=== PATIENT | female | born 1940 | race Caucasian/White ===

== ENCOUNTER 2025-01-09 17:05 | Inpatient (IN) | payer MEDICARE, SELFPAY ==
[2025-01-05 15:41] VITALS: BP 125/91
[2025-01-05 15:46] VITALS: BP 125/91
[2025-01-05 15:48] VITALS: BMI 26.7
[2025-01-05 16:00] VITALS: BP 120/86
--- NOTE | 2025-01-05 16:23 | ED.GENMED ---
History of Present Illness
<Rosa Santiago PA-C - Last Filed: 01/06/25 01:39>
General
Chief Complaint: Musculo-Skeletal Complaint
Source: patient
Exam Limitations: none
Time Seen by Provider: 01/05/25 16:05
Nursing documentation reviewed up to this point in time: agreed with
History of Present Illness
History of Present Illness:
see MDM
Past History
<Rosa Santiago PA-C - Last Filed: 01/06/25 01:39>
Past History
ED Past Medical History: Arrthythmia, HTN and Hypercholesterolemia
ED Past Surgical History: None
Social History
Tobacco: Non-smoker
Review of Systems
<RAINE Lopez Last Filed: 01/06/25 01:39>
Review of Systems
Allergies reviewed?: Yes
All Other Systems: Not applicable
Phy Exam
<RAINE Lopez Last Filed: 01/06/25 01:39>
Physical Exam
Physical Exam:
see MDM
Course
<RAINE Lopez Last Filed: 01/06/25 01:39>
Orders/Labs/Results
Orders:
Orders
01/05/25 Dinner
Regular
At Your Request: Full Participation
01/05/25 16:17
HYDROmorphone [Dilaudid] 0.25 mg IV NOW STA
Ketorolac [Toradol] 15 mg IV NOW STA
Hip, Right 2-3 Views [CR Hip - RT w/wo Pel 2-3 Vw*] Urgent
Comment:
Reason For Exam: R hip pain after lifting
Include a pelvis x-ray?: Yes
Lumbar Spine Complete, 4 View [CR Lumbar Spine Comp Min 4 Vw*] Urgent
Comment:
Reason For Exam: lower back pain cannot ambulate
01/05/25 16:51
Complete Blood Count/With Diff Urgent
Comprehensive Metabolic Panel Urgent
01/05/25 17:26
0.9% Sodium Chloride 500 ml [Nss] 500 ml IV BOLUS
01/05/25 20:13
Dexamethasone Sod Phosphate [Decadron] 6 mg IV NOW STA
HYDROmorphone [Dilaudid] 0.25 mg IV NOW STA
01/05/25 21:38
Admit/Transfer Patient As Directed
Co-Sign Provider:
Level of Care: Observation services
Assign to:: Medical/Surgical
Physician / Group: melquiades byers
Diagnosis: amb dysfunction 22/ r sciatica pos l2 compress fx. yohannes
Code Status As Directed
Resuscitation Status: Do not resuscitate
Reached after discussion with pt or family/Healthcare POA: Yes
Decision communicated with: Per patient with daughter and son-in-law at bedside
DNR Bracelet Application ONCE
01/05/25 21:44
PRN Pain Medication Management As Directed
May give lesser potent ordered pain med per pt: Yes
preference::
Protocol:: Medication orders for pain may be administered in a
manner that supports deferring to patient preference
when the pt is:
- Requesting an ordered lesser potent pain medication.
Least to most potent pain medications are defined
as: acetaminophen < NSAID < tramadol < opioids
(morphine, oxycodone, hydromorphone).
- Requesting a lesser dose of the same medication IF
ORDERED.
- Requesting a less intrusive route of administration
if both routes are prescribed by the provider (PO <
IV).
01/05/25 21:46
Acetaminophen [Tylenol] 1,000 mg PO NOW STA
01/05/25 21:50
Lidocaine [Lidocaine 4% Patch] 1 patch TOPICAL DAILY
Apply Lidocaine patch(s) to:: right upper buttox horizontal
01/05/25 23:44
Acetaminophen [Tylenol] 1,000 mg PO TID
Bisacodyl [Dulcolax] 10 mg RECTAL [id number] PRN
Docusate W/Senna [Senokot-S] 1 tablet PO BIDPRN PRN
Polyethylene Glycol Powder [Miralax] 17 grams PO DAILYPRN PRN
01/05/25 23:44
VTE Contraindication Routine
VTE Mechanical Device Contraindication: Medical Contraindication
Pharmocologic Contraindication: Medical Contraindication
Comment: Continue PEDIATRICIAN Eliquis
Activity As Directed
Activity Level: With Assistance
Vital Signs As Directed
Frequency: Per unit guidelines
Ot Eval And Treat Routine
Pt Eval And Treat Routine
Activity Level: As Tolerated
01/06/25 06:00
Complete Blood Count/With Diff IN AM
Comprehensive Metabolic Panel IN AM
01/06/25 08:00
Apixaban [Eliquis] 5 mg PO BID
Artificial Tears (Pf) [Refresh Eye Drops (Pf)] 1 drops BOTH EYES BID
Metoprolol Xl [Toprol Xl] 100 mg PO DAILY
Annamarie's Opcon 1 drop OPHTH BID
Pravastatin Sodium [Pravachol] 40 mg PO DAILY
Prednisone [Deltasone] 7 mg PO DAILY
dorzolamide-timolol 1 drop BOTH EYES BID
01/06/25 22:00
Non-Formulary Item See Dose Instructions BOTH EYES HS
Abnormal Lab Results
01/05/25
16:51
MCHC 32.5 L g/dL
(33.0-37.0)
MPV 10.6 H fL
(7.4-10.4)
Abs Immat Gran (auto) 0.1 H 10^3/uL
(0-0.05)
Absolute Lymphs (auto) 1.1 L 10^3/uL
(1.2-3.4)
Absolute Monos (auto) 0.8 H 10^3/uL
(0.1-0.6)
Immature Gran % 0.8 H %
(0-0.5)
Lymphocytes % 15.2 L %
(20.5-51.1)
Monocytes % 10.7 H %
(1.7-9.3)
BUN 43 H mg/dl
(7-17)
Creatinine 1.1 H mg/dL
(0.6-1.0)
Glucose 114 H mg/dl
(70-99)
Total Bilirubin 1.5 H mg/dl
(0.2-1.3)
01/05/25 16:51
01/05/25 16:51
Vital Signs
Initial and Last Documented VS:
Initial Vital Signs
Temp Pulse Resp BP Pulse Ox
36.6 C 77 16 125/91 98
01/05/25 15:41 01/05/25 15:41 01/05/25 15:41 01/05/25 15:41 01/05/25 15:41
Last Documented Vital Signs
Temp Pulse Resp BP Pulse Ox
37.0 C 105 20 129/92 95
01/05/25 23:37 01/05/25 23:37 01/05/25 23:37 01/05/25 23:37 01/05/25 23:37
<Hans Esteves MD - Last Filed: 01/05/25 23:11>
Orders/Labs/Results
Orders:
Orders
01/05/25 Dinner
Regular
At Your Request: Full Participation
01/05/25 16:17
HYDROmorphone [Dilaudid] 0.25 mg IV NOW STA
Ketorolac [Toradol] 15 mg IV NOW STA
Hip, Right 2-3 Views [CR Hip - RT w/wo Pel 2-3 Vw*] Urgent
Comment:
Reason For Exam: R hip pain after lifting
Include a pelvis x-ray?: Yes
Lumbar Spine Complete, 4 View [CR Lumbar Spine Comp Min 4 Vw*] Urgent
Comment:
Reason For Exam: lower back pain cannot ambulate
01/05/25 16:51
Complete Blood Count/With Diff Urgent
Comprehensive Metabolic Panel Urgent
01/05/25 17:26
0.9% Sodium Chloride 500 ml [Nss] 500 ml IV BOLUS
01/05/25 20:13
Dexamethasone Sod Phosphate [Decadron] 6 mg IV NOW STA
HYDROmorphone [Dilaudid] 0.25 mg IV NOW STA
01/05/25 21:38
Admit/Transfer Patient As Directed
Co-Sign Provider:
Level of Care: Observation services
Assign to:: Medical/Surgical
Physician / Group: melquiades byers
Diagnosis: amb dysfunction 22/ r sciatica pos l2 compress fx. yohannes
Code Status As Directed
Resuscitation Status: Do not resuscitate
Reached after discussion with pt or family/Healthcare POA: Yes
Decision communicated with: Per patient with daughter and son-in-law at bedside
DNR Bracelet Application ONCE
01/05/25 21:44
PRN Pain Medication Management As Directed
May give lesser potent ordered pain med per pt: Yes
preference::
Protocol:: Medication orders for pain may be administered in a
manner that supports deferring to patient preference
when the pt is:
- Requesting an ordered lesser potent pain medication.
Least to most potent pain medications are defined
as: acetaminophen < NSAID < tramadol < opioids
(morphine, oxycodone, hydromorphone).
- Requesting a lesser dose of the same medication IF
ORDERED.
- Requesting a less intrusive route of administration
if both routes are prescribed by the provider (PO <
IV).
01/05/25 21:46
Acetaminophen [Tylenol] 1,000 mg PO NOW STA
01/05/25 21:50
Lidocaine [Lidocaine 4% Patch] 1 patch TOPICAL DAILY
Apply Lidocaine patch(s) to:: right upper buttox horizontal
01/05/25 23:44
Acetaminophen [Tylenol] 1,000 mg PO TID
Bisacodyl [Dulcolax] 10 mg RECTAL [id number] PRN
Docusate W/Senna [Senokot-S] 1 tablet PO BIDPRN PRN
Polyethylene Glycol Powder [Miralax] 17 grams PO DAILYPRN PRN
01/05/25 23:44
VTE Contraindication Routine
VTE Mechanical Device Contraindication: Medical Contraindication
Pharmocologic Contraindication: Medical Contraindication
Comment: Continue PEDIATRICIAN Eliquis
Activity As Directed
Activity Level: With Assistance
Vital Signs As Directed
Frequency: Per unit guidelines
Ot Eval And Treat Routine
Pt Eval And Treat Routine
Activity Level: As Tolerated
01/06/25 06:00
Complete Blood Count/With Diff IN AM
Comprehensive Metabolic Panel IN AM
01/06/25 08:00
Apixaban [Eliquis] 5 mg PO BID
Artificial Tears (Pf) [Refresh Eye Drops (Pf)] 1 drops BOTH EYES BID
Metoprolol Xl [Toprol Xl] 100 mg PO DAILY
Annamarie's Opcon 1 drop OPHTH BID
Pravastatin Sodium [Pravachol] 40 mg PO DAILY
Prednisone [Deltasone] 7 mg PO DAILY
dorzolamide-timolol 1 drop BOTH EYES BID
01/06/25 22:00
Non-Formulary Item See Dose Instructions BOTH EYES HS
Abnormal Lab Results
01/05/25
16:51
MCHC 32.5 L g/dL
(33.0-37.0)
MPV 10.6 H fL
(7.4-10.4)
Abs Immat Gran (auto) 0.1 H 10^3/uL
(0-0.05)
Absolute Lymphs (auto) 1.1 L 10^3/uL
(1.2-3.4)
Absolute Monos (auto) 0.8 H 10^3/uL
(0.1-0.6)
Immature Gran % 0.8 H %
(0-0.5)
Lymphocytes % 15.2 L %
(20.5-51.1)
Monocytes % 10.7 H %
(1.7-9.3)
BUN 43 H mg/dl
(7-17)
Creatinine 1.1 H mg/dL
(0.6-1.0)
Glucose 114 H mg/dl
(70-99)
Total Bilirubin 1.5 H mg/dl
(0.2-1.3)
01/05/25 16:51
01/05/25 16:51
Vital Signs
Initial and Last Documented VS:
Initial Vital Signs
Temp Pulse Resp BP Pulse Ox
36.6 C 77 16 125/91 98
01/05/25 15:41 01/05/25 15:41 01/05/25 15:41 01/05/25 15:41 01/05/25 15:41
Last Documented Vital Signs
Temp Pulse Resp BP Pulse Ox
37.0 C 105 20 129/92 95
01/05/25 23:37 01/05/25 23:37 01/05/25 23:37 01/05/25 23:37 01/05/25 23:37
<Rosa Santiago PA-C - Last Filed: 01/06/25 01:39>
MDM/Problems Addressed
Differential Diagnosis Includes:
see MDM
MDM/Problems Addressed:
Note:
CHIEF COMPLAINT(S)
Hip pain since December 24, 2022.
HISTORY OF PRESENT ILLNESS
The patient is an 84-year-old female who presented today with hip pain that started on December 24, 2022, after she pulled a heavy flower pot on the sidewalk. Initially, she did not feel any significant pain, but the discomfort progressively
worsened over time. She described the pain as severe, making it difficult to get out of bed and move. The pain does not radiate down the leg, and she does not experience numbness or tingling. She reported being constipated for two to three days,
followed by diarrhea for a couple of days. Pain severity increases with movement, particularly when transitioning from a sitting to a standing position. She lives alone and had to call a relative for assistance; however, upon her relatives arrival,
they decided she needed to go to the hospital. Her relative called EMS, and she arrived by ambulance. She has not received any pre-hospital pain medication. The patient denied any loss of bladder or bowel control, though noted difficulty with
bathing and changing underwear. She is unable to sit upright comfortably or walk to the bathroom without assistance. She rates her pain as 0 while lying still but reports severe pain when attempting to move.
PAST MEDICAL AND SURGICAL HISTORY
The patient has hypertension and is on anticoagulant therapy.
SOCIAL DETERMINANTS AFFECTING HEALTH
The patient lives alone and mentions having no relatives nearby as her family is in [place], which affects her ability to obtain assistance for medical issues and daily activities.
PHYSICAL EXAM
Nursing notes reviewed and vital signs reviewed.
- Musculoskeletal: Significant pain when transitioning from sitting to standing, lying on the side during the exam was painful. Pain localized primarily to the hip area with palpation.
- Abdomen: No pain reported upon palpation.
PROBLEM LIST
Acute:
- Severe hip pain post-trauma (lifting heavy object)
Chronic:
- Hypertension
PLAN
1. Administer intravenous pain medication, starting with morphine, in a small dose to assess response and manage pain.
2. Monitor mobility and reassess ability to walk or stand with improved pain control.
3. Consider collaboration with family for home support as needed.
4. Possible future referral for MRI imaging to assess for disc herniation or compression fractures.
5. Follow-up with family physician for ongoing management and further evaluation if necessary.
DIFFERENTIAL DIAGNOSIS
The Differential Diagnosis includes, in no particular order and is not limited to:
1. Hip fracture or stress fracture
2. Lumbar spine disc herniation
3. Sciatica
4. Sacroiliac joint dysfunction
5. Spinal stenosis
6. Muscle strain or sprain
7. Trochanteric bursitis
8. Osteoarthritis of the hip
9. Osteomyelitis
10. Referred pain from abdominal pathology
01/05/25 - 20:13
The patients hip X-ray shows no fractures, though mild arthritis is present. The lumbar spine reveals chronic minimal L5 end plate compression and a recent mild compression deformity at L2, contributing to pain. Sciatica is less likely, as the
patient does not report shooting leg pain, suggesting joint or muscle inflammation. Despite strong analgesics, the patient has significant difficulty moving, suggesting admission is necessary for pain management and mobility assessment. The patient
has a history of polymyalgia rheumatica, currently on 7 mg of steroids daily, with previous symptoms primarily in the shoulders. Increased steroid dosage and physical therapy evaluation are considered beneficial for enhancement of mobility. Glaucoma
treatment with rare eye drops should be continued during hospitalization. Admission for PT eval, and a comprehensive mobility and pain management plan is initiated.
<Rosa Santiago PA-C - Last Filed: 01/06/25 01:39>
*Pulse Oximetry
SaO2: 98
Oxygen Mode of Delivery: Room air
Patient hypoxic: no (95)
*Critical Care Note
Total Time (30-74mins, 75-104mins- exclusive of procedures): Not Applicable
ED Attending Note
<Rosa Santiago PA-C - Last Filed: 01/06/25 01:39>
-
Portions of this chart may have been created with voice recognition software.� Occasional wrong word or��sound alike� substitutions may have occurred due to the inherent limitations of voice recognition software.
<Hans Esteves MD - Last Filed: 01/05/25 23:11>
ED Attending Note
Patient seen and examined by attending physician: Yes
ED Attending Note:
I have seen and evaluated the patient with a [id number] encounter. I have spoken to the advance practicer provider and involved in the medical history, the physical exam, medical decision making.
Evaluation and management service: agree unless noted differently below.
Results interpretation: agree unless noted differently below.
Focused HPI: 84-year-old female with history as documented who presents to the emergency room for evaluation of hip/low back pain. Patient reports that symptoms started about 2 weeks ago after she was pulling a heavy flower pot. They have been
constant since that time. She reports pain in the low back/buttock. Denies any radicular symptoms. Denies any incontinence or anesthesia. No weakness or numbness in the legs. Pains are much worse with movement to the point that she is having
difficulty walking now.
Physical exam: Laying on bed not in distress. Vital signs as noted. She has some tenderness in the right greater than left sacroiliac region as well as in the right buttock. No edema in the legs, extremities are warm and well-perfused, motor and
sensory intact in the legs.
Medical Decision Makin-year-old female presents with hip/low back pain as described above. Difficulty bearing weight/walking. X-rays show compression fractures which are likely contributing to pain�L5 chronic, L2 appears subacute. Unable to
adequately control patient's pain in the ER will admit for continued treatment.
Discharge Plan
Departure
Patient Disposition: Admit
Date of Disposition: 01/05/25
Time of Disposition: 20:13
Admit to: Med/Surg
Presentation/result/management discussed w/ accepting MD/DO: Hospitalist
Patient with high blood pressure during this ER visit?: No
Condition: Fair
Covid-19: Not Applicable
Discharge Problem:
Compression fx, lumbar spine, PMR (polymyalgia rheumatica), Ambulatory dysfunction
Interventions
Interventions:
*Risk Screen - Suicide Last Done: 01/05/25 15:41
*General Assessment Last Done: 01/05/25 15:41
*Neglect/Abuse Screening Last Done: 01/05/25 15:48
*ED- Fall Risk Assessment Last Done: 01/05/25 15:48
*ED COVID-19 Vaccine History Last Done: 01/05/25 15:48
*ED Influenza Vaccine History Last Done: 01/05/25 15:48
*Nursing Disposition Last Done: 01/05/25 23:20
ED-Musculoskeletal Assessment Last Done: 01/05/25 15:53
Discharge Date and Time
Discharge Date/Time: 01/05/25 23:21
[2025-01-05] MEDS: DILAUDID 0.25 MG IV ×2 (16:41→20:29)
[2025-01-05] MEDS: TORADOL 15 MG IV (16:41)
[2025-01-05 17:05] LABS: Hematocrit 42.4 % (37.0-47.0); Hemoglobin 13.8 g/dL (12.0-16.0); Mean Corp Hgb Conc. 32.5 g/dL (33.0-37.0); Mean Corpuscular Volume 93.4 fL (81.0-99.0); Nucleated Red Blood Cells % 0 %; Platelet Count 198 10^3/uL (130-400); Red Cell Dist. Width 13.6 % (11.5-14.5)
[2025-01-05 17:19] LABS: ALT (SGPT) 15 U/L (0-35); AST (SGOT) 22 U/L (14-36); Albumin 3.9 g/dl (3.5-5.0); Alkaline Phosphatase 62 U/L (38-126); Blood Urea Nitrogen 43 mg/dl (7-17); Calcium 9.8 mg/dl (8.4-10.2); Carbon Dioxide 28 mmol/L (22-30); Chloride 102 mmol/L (98-107); Estimated Creatinine Clearance 36 ml/min; Glucose 114 mg/dl (70-99); Potassium 4.3 mmol/L (3.5-5.1); Sodium 138 mmol/L (135-145); Total Protein 6.5 g/dl (6.3-8.2); eGFR 48.94
[2025-01-05] MEDS: NSS 500 IV (19:11)
[2025-01-05] MEDS: DECADRON 6 MG IV (20:29)
--- NOTE | 2025-01-05 20:52 | HPS.HSE ---
Addendum entered and electronically signed by Abelardo Armenta DO 01/05/25 23:21:
Patient seen and examined independently. Agree with findings and plan as set forth by KB Gamez.
Patient is an 84y F with PMH significant for polymyalgia rheumatica, hypertension and A-Fib who presents to ED complaining of pain in the R buttock. Patient states that her pain started 12/24 after pulling a heavy object across the floor. The
pain seemed to improve for a time and then has recurred. Patient is unable to stand / ambulate due to the pain. There is no radiation of pain into the abdomen or the LE.
Ass:
Right Low Back Pain
Ambulatory Dysfunction secondary to the above
Polymyalgia Rheumatica
Renal Insufficiency
Atrial Fibrillation - Unknown Type
Benign Hypertension
Plan:
Observe overnight for further evaluation and treatment.
Pain control, heat application, PT / OT evaluations.
CM eval for discharge plan / possible SNF placement.
Continue usual home med regimen.
Original Note:
Family Physician
-
Family Physician: Aster Pineda
Chief Complaint
-
Right hip pain ambulatory dysfunction
History of Present Illness
84-year-old female complaining of with hip pain that has progressively worsened since December 24. She reports increased pain with movement, sitting to standing position. She reports hurting her back after pulling a heavy flower pot on the
sidewalk on December 24. She lives alone and was unable to care for self without assistance at home. She complains of pain across right upper buttocks area. She did not have any walker or assistive devices at home so she was using 2 mops to
walk. She denies bladder or bowel incontinence, numbness, tingling, chest pain, palpitations, cough, shortness of breath, abdominal pain, nausea, vomiting. She does report 2 to 3 days of constipation followed by diarrhea initially but resolved had
normal bowel movement yesterday. She has past medical history of polymyalgia rheumatica on chronic steroids, A-fib, HTN, HLD, glaucoma.
Medical History
Past Medical History
Past Medical History: Reports Other
Additional Past Medical History:
polymyalgia rheumatica on chronic steroids
A-fib
HTN
HLD
glaucoma.
Past Surgical History: Reports None
Social History
Tobacco: Non-smoker
Alcohol: None
Drug: None
Personal: Single
Living: Alone
Employment: Retired
Family History
Family History: Not pertinent
Allergies / Home Medications
Allergies reflects when Allergies were last updated in [facility].
Home Medications with original date entered in [facility]
Allergy/Medication List:
Allergies
Allergy/AdvReac Type Severity Reaction Status Date / Time
No Known Allergies Allergy Verified 01/05/25 15:51
Home Medications
Lumigan 1 drp ophthalmic (eye) HS 01/05/25
Annamarie's Opcon 1 drp ophthalmic (eye) BID 01/05/25
Refresh 1 drp ophthalmic (eye) BID 01/05/25
apixaban 5 mg tablet (Eliquis) 5 mg PO DAILY 01/05/25
dorzolamide-timolol 1 drp ophthalmic (eye) BID 01/05/25
losartan 100 mg tablet 100 mg PO DAILY 01/05/25
metoprolol succinate 100 mg tablet,extended release 24 hr 100 mg PO DAILY 01/05/25
pravastatin 40 mg tablet 40 mg PO DAILY 01/05/25
prednisone 7 mg PO DAILY 01/05/25
Review of Systems
-
History Source: Patient and Family (Daughter and son-in-law at bedside)
A 12 point ROS was completed and negative except as noted: Yes
Constitutional: Denies Fever or Chills
EENT: Denies Sore Throat or Runny Nose
Respiratory: Denies Cough or Trouble Breathing
Cardiac: Denies Chest Pain, Diaphoresis, Palpitations or Syncope
Abdomen/GI: Denies Abdominal Pain, Nausea, Vomiting, Diarrhea, Constipated or Bloody Stools
: Denies Dysuria, Frequency, Flank Pain, Incontinence, Difficulty Voiding or Urgency
Musculoskeletal: Reports Other (Upper right buttocks pain across top of gluteus no lumbar vertebral tenderness); Denies Joint Pain or Edema
Skin: Denies Itching or Rash
Neurological: Denies Dizzy, Headache or Weakness
Endocrine: Reports No Symptoms
Hematologic/Lymphatic: Reports No Symptoms
Psych: Reports Calm
Physical Exam
Vital Signs
Vital Signs
Temp Pulse Resp BP Pulse Ox
97.9 F 71 16 120/86 98
01/05/25 15:41 01/05/25 16:00 01/05/25 16:00 01/05/25 16:00 01/05/25 16:23
Physical Exam
General: No Fever or Chills
HEENT: NormoCephalic, Anicteric, PERRLA, [place] Conjunctivae, No Ptosis and Other (Dry oral mucosa)
Respiratory: Clear; No Wheezes, Rales or Rhonchi
Cardiac: S1/S2 and Regular Rhythm; No Murmur, Rub, Gallop or Peripheral Edema
Breast: Deferred by me
GI: Soft, Non Tender, Non Distended, Normal Bowel Sounds and No Hepatosplenomegaly
Rectal: Deferred by Provider
Genito-urinary: Deferred by me
Musculoskeletal: No Clubbing, No Cyanosis, No Edema and Other (Upper right buttocks pain across top of gluteus no lumbar vertebral tenderness)
Skin: Warm and Dry; No Rash
Neuro: AO x 3, No Motor Deficits (While in bed), Cranial Nerves Intact and Other (Hard of hearing); No Slurred Speech, Facial Droop, Tremors or Sedated
Psych: Calm
Laboratory Results
-
01/05/25 16:51
01/05/25 16:51
Laboratory Results
Total Bilirubin 1.5 mg/dl (0.2-1.3) H 01/05/25 16:51
AST 22 U/L (14-36) 01/05/25 16:51
ALT 15 U/L (0-35) 01/05/25 16:51
Alkaline Phosphatase 62 U/L (38-126) 01/05/25 16:51
Data Reviewed
-
CT Scan: Report Reviewed by me
Lab Data: Labs Reviewed by me
Impression/Plan
-
Impression/plan:
Observation MedSurg
#Acute on chronic ambulatory dysfunction
#Chronic right hip pain possibly secondary to acute sciatica versus recent mild compression deformity L2
#Chronic L5 endplate compression fracture
History osteoporosis
-Pain control Tylenol scheduled 1000 mg 3 times daily then as needed
-Lidoderm patch right buttocks across top
-PT/OT/case management as patient lives alone in [facility]
Polymyalgia rheumatica
Continue prednisone 7 mg daily
#LIVE likely due to decreased oral intake versus CKD
Creat 1.4/bun
-Encourage oral intake
-Hold losartan 100 mg daily
- Repeat BMP
#A-fib
Continue metoprolol ER 100 mg daily, Eliquis patient takes 5 mg daily does not want twice daily due to bruising
- Recommend Eliquis 5 mg twice daily
#HTN
-Hold losartan due to LIVE
Continue metoprolol ER 100 mg daily
#HLD
Continue pravastatin 40 mg daily
DVT prophylaxis
Continue Eliquis
DNR per patient with daughter and son-in-law present at bedside
[2025-01-05] MEDS: LIDOCAINE 4% PATCH 1 PATCH TOPICAL (22:37)
[2025-01-05] MEDS: TYLENOL 1000 MG PO (22:37)
[2025-01-05 23:37] VITALS: BP 129/92; BMI 25.3
[2025-01-06 00:01] VITALS: BMI 25.3
[2025-01-06 08:15] VITALS: BP 122/88
--- NOTE | 2025-01-06 08:28 | W.PN.HOSP.TC ---
Today's Communication/Plan
-
see plan
Assessment / Plan
Assessment / Plan
Gen: NAD, AAOx3.
Eyes: EOMI, PERRLA, no scleral icterus.
Neck: supple.
CV: irreg/irreg, +S1/S2, no m/r/g.
Resp: CTAB, no rales, wheezes, or rhonchi.
Abd: +BS, soft, NT, ND
Skin: No rashes.
Neuro: CN 2-12 intact, non-focal, RLE straight leg raise NEG
MSK: TTP in the R buttock in the area of the sciatic nerve
Psych: Normal mood and affect.
L-spine Xray: Age indeterminant mild superior endplate compression deformity of L2; this may be subacute in nature. Minimal superior endplate L5 diminished stature, which looks chronic. Facet arthrosis with mild degenerative grade 1
spondylolisthesis of L5.
R hip Xray: No radiographically demonstrable fracture.
Ambulatory dysfunction due to right low back pain:
-due to mechanical injury (started 12/24 after pulling heavy object across the floor)
-pain control
-PT/OT
-will give another 6mg IV Decadron
Other problems:
Osteoarthritis
PMR: Cont Prednisone
Chronic A-fib: Cont BB/Eliquis
Essential HTN: cont BB, ARB on hold
HLD: cont statin
DNR/Eliquis
Anticipated Discharge: Within 24 hours
Subjective/Interval History
-
Date of Service: January 06, 2025
Objective Data
-
Labs:
Laboratory Results
01/06/25
06:55
WBC Pending
Hgb Pending
Hct Pending
Plt Count Pending
Sodium Pending
Potassium Pending
Chloride Pending
Carbon Dioxide Pending
BUN Pending
Creatinine Pending
Glucose Pending
Calcium Pending
Total Bilirubin Pending
AST Pending
ALT Pending
Alkaline Phosphatase Pending
Vital Signs:
Vital Signs
Temp Pulse Resp BP Pulse Ox
97.5 F 110 18 122/88 98
01/06/25 08:15 01/06/25 08:15 01/06/25 08:15 01/06/25 08:15 01/06/25 08:15
I&O
01/05/25 01/06/25 01/07/25
06:59 06:59 06:59
Output Total 450 / 450
Balance -450 / -450
[2025-01-06 08:30] LABS: Hematocrit 40.2 % (37.0-47.0); Hemoglobin 13.3 g/dL (12.0-16.0); Mean Corp Hgb Conc. 33.1 g/dL (33.0-37.0); Mean Corpuscular Volume 94.6 fL (81.0-99.0); Nucleated Red Blood Cells % 0 %; Platelet Count 192 10^3/uL (130-400); Red Cell Dist. Width 13.6 % (11.5-14.5)
[2025-01-06 09:09] LABS: ALT (SGPT) 15 U/L (0-35); AST (SGOT) 20 U/L (14-36); Albumin 3.6 g/dl (3.5-5.0); Alkaline Phosphatase 58 U/L (38-126); Blood Urea Nitrogen 51 mg/dl (7-17); Calcium 9.2 mg/dl (8.4-10.2); Carbon Dioxide 26 mmol/L (22-30); Chloride 106 mmol/L (98-107); Estimated Creatinine Clearance 36 ml/min; Glucose 120 mg/dl (70-99); Potassium 5.1 mmol/L (3.5-5.1); Sodium 140 mmol/L (135-145); Total Protein 6.0 g/dl (6.3-8.2); eGFR 48.94
[2025-01-06] MEDS: DELTASONE 7 MG PO (09:25)
[2025-01-06] MEDS: ELIQUIS 5 MG PO ×2 (09:26→20:19)
[2025-01-06] MEDS: LIDOCAINE 4% PATCH 1 PATCH TOPICAL (09:27)
[2025-01-06] MEDS: PRAVACHOL 40 MG PO (09:27)
[2025-01-06] MEDS: TOPROL XL 100 MG PO (09:27)
[2025-01-06] MEDS: REFRESH EYE DROPS (PF) 1 DROPS BOTH EYES ×2 (09:34→20:20)
[2025-01-06] MEDS: TYLENOL 1000 MG PO ×3 (09:34→22:50)
[2025-01-06] MEDS: NON-FORMULARY ITEM 1 DROP BOTH EYES ×2 (09:36→20:19)
[2025-01-06] MEDS: NON-FORMULARY ITEM 1 DROP OPHTH ×2 (09:36→20:19)
[2025-01-06] MEDS: DECADRON 6 MG IV (09:53)
[2025-01-06 13:17] VITALS: BP 131/85; PULSE 90
[2025-01-06 15:03] VITALS: BP 131/85
[2025-01-06 15:45] VITALS: BP 101/68
--- NOTE | 2025-01-06 15:59 | CM ---
Alert awake oriented patient who lives alone in a 1 story home with 2 steps to enter.She is independent in activates of daily living.She does drive .She does not have adaptive devices.SUJATHA explained to patient Copy given Pt did not sign form.PT
[place] data given . Pt said she will discuss with dgt CM number left with patient .
No VN in past . No SNF hx
Pharmacy [facility]
PCP Dr Pineda
PLAN To SNf after located and auth obtained
[2025-01-06] MEDS: NON-FORMULARY ITEM 1 UNIT BOTH EYES (22:50)
[2025-01-06 23:41] VITALS: BP 101/67
[2025-01-07 07:00] VITALS: BP 111/79
[2025-01-07] MEDS: LIDOCAINE 4% PATCH 1 PATCH TOPICAL (09:20)
[2025-01-07] MEDS: TYLENOL 1000 MG PO ×3 (09:21→20:08)
[2025-01-07] MEDS: ELIQUIS 5 MG PO ×2 (09:21→20:07)
[2025-01-07] MEDS: PRAVACHOL 40 MG PO (09:21)
[2025-01-07] MEDS: SENOKOT 17.2 MG PO (09:21)
[2025-01-07] MEDS: TOPROL XL 100 MG PO (09:21)
[2025-01-07] MEDS: REFRESH EYE DROPS (PF) 1 DROPS BOTH EYES (09:22)
[2025-01-07] MEDS: NON-FORMULARY ITEM 1 DROP OPHTH ×2 (09:22→20:06)
[2025-01-07] MEDS: NON-FORMULARY ITEM 1 DROP BOTH EYES ×2 (09:22→20:07)
[2025-01-07] MEDS: DELTASONE 7 MG PO (09:44)
--- NOTE | 2025-01-07 10:07 | CM ---
Met with pt. She will be talking with her dtr today and selecting SNF referrals. Will need auth. Pt would like to be discharged home if possible. States her dtr would stay with her to assist her.
Plan: Discharge to SNF when bed is available.
--- NOTE | 2025-01-07 14:29 | W.PN.HOSP.TC ---
Today's Communication/Plan
-
Discharge planning
Case management aware
Assessment / Plan
Assessment / Plan
84-year-old female presented with pain in the right buttock after pulling a heavy object across the fall. This happened end of December then seem to be improving and then reoccurred. Unable to stand or ambulate
L-spine Xray: Age indeterminant mild superior endplate compression deformity of L2; this may be subacute in nature. Minimal superior endplate L5 diminished stature, which looks chronic. Facet arthrosis with mild degenerative grade 1
spondylolisthesis of L5.
R hip Xray: No radiographically demonstrable fracture.
Pain better
CVS: S1-S2 normal
Chest: CTA B/L
Abdomen: Soft, NT / Bowel sounds present
Extremities: No edema
PBX MANAGER: good strength B/L LE
#Ambulatory dysfunction due to right low back pain:
-due to mechanical injury (started 12/24 after pulling heavy object across the floor)
-X-ray with possible subacute L2 compression deformity-possibly secondary to osteopenia
-Pain control
-PT/OT
-got 6mg IV Decadron 2 doses total
#Elevated creatinine with unknown baseline
#PMR: Cont Prednisone
#Chronic A-fib: Cont BB/Eliquis
#Essential HTN: cont BB, ARB on hold
#HLD: cont statin
#DVT Prophylaxis- Eliquis
#DNR
D/W Case management re SNF
Part of this note was created using voice recognition system. Occasional wrong word or��sound alike� substitutions may have inadvertently occurred due to the inherent limitations of voice recognition software. If noted kindly bring it to my
attention for correction.
Anticipated Discharge: Within 24 hours
Subjective/Interval History
-
Date of Service: January 07, 2025
Objective Data
-
Vital Signs:
Vital Signs
Temp Pulse Resp BP Pulse Ox
97.8 F 106 16 111/79 95
01/07/25 07:00 01/07/25 07:00 01/07/25 07:00 01/07/25 07:00 01/07/25 07:00
I&O
01/06/25 01/07/25 01/08/25
06:59 06:59 06:59
Output Total 450 / 450 800 / 800
Balance -450 / -450 -800 / -800
[2025-01-07 15:00] VITALS: BP 121/73
[2025-01-07] MEDS: REFRESH EYE DROPS (PF) BOTH EYES ×2 (20:07→20:44)
[2025-01-07] MEDS: SENOKOT PO (20:08)
[2025-01-07] MEDS: NON-FORMULARY ITEM 1 UNIT BOTH EYES (20:08)
[2025-01-07 23:11] VITALS: BP 125/77
[2025-01-08 07:00] VITALS: BP 105/61
[2025-01-08 07:32] LABS: Blood Urea Nitrogen 51 mg/dl (7-17); Calcium 9.2 mg/dl (8.4-10.2); Carbon Dioxide 30 mmol/L (22-30); Chloride 105 mmol/L (98-107); Estimated Creatinine Clearance 36 ml/min; Glucose 86 mg/dl (70-99); Potassium 4.5 mmol/L (3.5-5.1); Sodium 138 mmol/L (135-145); eGFR 48.94
[2025-01-08] MEDS: DELTASONE 7 MG PO (07:47)
[2025-01-08] MEDS: ELIQUIS 5 MG PO ×2 (07:48→19:57)
[2025-01-08] MEDS: PRAVACHOL 40 MG PO (07:48)
[2025-01-08] MEDS: LIDOCAINE 4% PATCH 1 PATCH TOPICAL (07:48)
[2025-01-08] MEDS: TYLENOL 1000 MG PO ×3 (07:48→21:05)
[2025-01-08] MEDS: REFRESH EYE DROPS (PF) 1 DROPS BOTH EYES ×2 (07:48→21:06)
[2025-01-08] MEDS: NON-FORMULARY ITEM 1 DROP OPHTH ×2 (07:49→19:55)
[2025-01-08] MEDS: NON-FORMULARY ITEM 1 DROP BOTH EYES ×2 (07:50→21:00)
[2025-01-08] MEDS: SENOKOT PO ×2 (07:51→19:57)
[2025-01-08] MEDS: TOPROL XL PO (08:54)
--- NOTE | 2025-01-08 11:20 | CM ---
Met with pt at bedside and spoke with Dr. Rocha. Pt is ready for discharge; waiting for a bed. Her #1 choice is [facility], #2 choice is [facility]. [facility] has accepted and bed is available today and tomorrow. Waiting for responses from other SNF.
Should know more tomorrow.
Pt is very concerned with the distance her daughter will have to travel to visit her. Yesterday, I spoke with dtr and she stated she is NOT concerned about the distance because she is driving down from [place].
Plan: D/C to SNF. Waiting for responses from [facility], [place] [facility]. [facility].
--- NOTE | 2025-01-08 13:34 | W.PN.HOSP.TC ---
Today's Communication/Plan
-
Discharge planning
Assessment / Plan
Assessment / Plan
84-year-old female presented with pain in the right buttock after pulling a heavy object across the fall. This happened end of December then seem to be improving and then reoccurred. Unable to stand or ambulate
L-spine Xray: Age indeterminant mild superior endplate compression deformity of L2; this may be subacute in nature. Minimal superior endplate L5 diminished stature, which looks chronic. Facet arthrosis with mild degenerative grade 1
spondylolisthesis of L5.
R hip Xray: No radiographically demonstrable fracture.
Pain better
CVS: S1-S2 normal
Chest: CTA B/L
Abdomen: Soft, NT / Bowel sounds present
Extremities: No edema
GEOLOGY INSTRUCTOR: good strength B/L LE
#Ambulatory dysfunction due to right low back pain:
-due to mechanical injury (started 12/24 after pulling heavy object across the floor)
-X-ray with possible subacute L2 compression deformity-possibly secondary to osteopenia
-Pain control
-PT/OT
-got 6mg IV Decadron 2 doses total
#Elevated creatinine with unknown baseline-Stable
#PMR: Cont Prednisone
#Chronic A-fib: Cont BB/Eliquis
#Essential HTN: cont BB, ARB on hold. BP stable with out
#HLD: cont statin
#DVT Prophylaxis- Eliquis
#DNR
D/W Case management re SNF-
Called daughter and updated.
Part of this note was created using voice recognition system. Occasional wrong word or��sound alike� substitutions may have inadvertently occurred due to the inherent limitations of voice recognition software. If noted kindly bring it to my
attention for correction.
Anticipated Discharge: Within 24 hours
Subjective/Interval History
-
Date of Service: January 08, 2025
Objective Data
-
Labs:
Laboratory Results
01/08/25
05:51
Sodium 138
Potassium 4.5
Chloride 105
Carbon Dioxide 30
BUN 51 H
Creatinine 1.1 H
Glucose 86
Calcium 9.2
Vital Signs:
Vital Signs
Temp Pulse Resp BP Pulse Ox
98 F 93 16 105/61 97
01/08/25 07:00 01/08/25 07:00 01/08/25 07:00 01/08/25 08:54 01/08/25 07:00
I&O
01/07/25 01/08/25 01/09/25
06:59 06:59 06:59
Intake Total 720 / 720
Output Total 800 / 800
Balance -800 / -800 720 / 720
[2025-01-08 15:00] VITALS: BP 131/91
[2025-01-08] MEDS: NON-FORMULARY ITEM 1 UNIT BOTH EYES (21:36)
[2025-01-08 23:47] VITALS: BP 108/57
[2025-01-09] VITALS (7 sets, daily range): BP systolic 108–155; BP diastolic 75–98; PULSE 93–134; O2SAT 98
[2025-01-09] MEDS: TOPROL XL 100 MG PO (04:55)
--- NOTE | 2025-01-09 07:52 | W.PN.HOSP.TC ---
Addendum entered and electronically signed by Vikram Rocha MD 01/09/25 17:09:
84-year-old female presented with pain in the right buttock after pulling a heavy object across the fall. This happened end of December then seem to be improving and then reoccurred. Unable to stand or ambulate
L-spine Xray: Age indeterminant mild superior endplate compression deformity of L2; this may be subacute in nature. Minimal superior endplate L5 diminished stature, which looks chronic. Facet arthrosis with mild degenerative grade 1
spondylolisthesis of L5.
R hip Xray: No radiographically demonstrable fracture.
Pain better
CVS: S1-S2 irregular,SM at apex and RHB
Chest: CTA B/L
Abdomen: Soft, NT / Bowel sounds present
Extremities: No edema
RAILROAD WATCHMAN: good strength B/L LE
#Ambulatory dysfunction due to right low back pain:
-due to mechanical injury (started 12/24 after pulling heavy object across the floor)
-X-ray with possible subacute L2 compression deformity-possibly secondary to osteopenia
-Pain control
-PT/OT
-got 6mg IV Decadron 2 doses total
- Pain is better
# Atrial fibrillation with rapid [id number] increased. EKG noted with A-fib. Patient has not seen a clinical reimbursement specialist in over 1-1/2 years. She was supposed to see Dr. Moreno at [facility]. Check echo
#Elevated creatinine with unknown baseline-Stable
#PMR: Cont Prednisone
#Essential HTN: cont BB, ARB on hold. BP stable with out
#HLD: cont statin
#DVT Prophylaxis- Eliquis
#DNR
D/W Case management re SNF
Called daughter and updated today
Part of this note was created using voice recognition system. Occasional wrong word or��sound alike� substitutions may have inadvertently occurred due to the inherent limitations of voice recognition software. If noted kindly bring it to my
attention for correction.
Original Note:
Today's Communication/Plan
-
Consulted cardiology
Echo ordered
Flexeril 2.5mg one time dose ordered
Assessment / Plan
Assessment / Plan
Assessment:
This is an 84 y/o female with right-sided back/buttock pain that began in late December after pulling a heavy object across the floor who presented to the ED on 01/05/2025 with ambulatory dysfuntion seccdonary to pain and was found to have an
age-indeterminant mild superior endplate compression fracture of L2 and chronic minimal superior endplate L5 diminished stature.
Plan:
Ambulatory dysfunction due to right low back pain:
-Secondary to mechanical injury (started 12/24 after pulling heavy object across the floor)
-X-ray with possible subacute L2 compression deformity-possibly secondary to osteopenia
-S/p 6mg IV Decadron x2
-Continue pain control. Added low dose Flexeril 2.5mg today one time dose to see if this improves her pain
-Continue PT/OT
-Plan for SNF upon discharge
Chronic Atrial Fibrillation
-Patient with new episodes of Afib with RVR starting earlier this AM and persistent tachycardia since then. Currently asymptomatic
-Has not seen clinical reimbursement specialist in some time
-Consulted cardiology today, will appreciate their insight into her case.
-Ordered Echo today as she has not had one in some significant time
-Continue Eliquis
-Continue Beta Kole
-Will monitor
Elevated creatinine with unknown baseline
-Stable
#Polymyalgia Rheumatica
-Continue Prednisone
#Essential HTN
-Continue Beta Kole
-ARB currently on hold, BP has remained stable without it
#Hyperlipidemia
-Continue statin
#DVT Prophylaxis- Eliquis
#DNR
D/W Case management re SNF-Earliest D/c would be tomorrow
Anticipated Discharge: Within 24 hours
Subjective/Interval History
-
Date of Service: January 09, 2025
Patient was resting in bed when I arrived. She states that when she is sitting still, she does not have any pain, but when she moves she will start to feel either pain or stiffness. She has difficulty telling the difference between the two. She is
not feeling any chest pain, palpitations, or dizziness. She states she does not have symptoms associated with her atrial fibrillation. She has not seen a clinical reimbursement specialist in 1-2 years, and last followed with [facility] in [place].
Objective Data
-
Vital Signs:
Vital Signs
Temp Pulse Resp BP Pulse Ox
97.1 F 90 16 108/75 96
01/09/25 07:00 01/09/25 07:00 01/09/25 07:00 01/09/25 07:00 01/09/25 07:00
I&O
01/08/25 01/09/25 01/10/25
06:59 06:59 06:59
Intake Total 720 / 720 660 / 660
Output Total 650 / 650
Balance 720 / 720
Review of Systems
-
History Source: Patient
Constitutional: Denies Fever or Chills
Respiratory: Denies Cough or Trouble Breathing
Cardiac: Denies Chest Pain or Palpitations
Abdomen/GI: Denies Abdominal Pain, Nausea, Vomiting, Diarrhea or Constipated
Musculoskeletal: Reports Joint Pain (Back, right sided), Muscle Pain (Back, right sided) and Muscle Stiffness (Back)
Physical Exam
-
General: Well Developed, Well Nourished, No Apparent Distress and Comfortable
HEENT: Normocephalic and Atraumatic
Respiratory: Clear to Auscultation
Cardiac: S1/S2, Irregular Rhythm and Tachycardic (120s)
Skin: Warm and Dry
Neuro: Awake, Alert and Oriented
Psych: Calm
[2025-01-09 09:28] LABS: Blood Urea Nitrogen 35 mg/dl (7-17); Calcium 9.1 mg/dl (8.4-10.2); Carbon Dioxide 29 mmol/L (22-30); Chloride 107 mmol/L (98-107); Estimated Creatinine Clearance 44 ml/min; Glucose 103 mg/dl (70-99); Magnesium 2.0 mg/dl (1.6-2.3); Potassium 3.7 mmol/L (3.5-5.1); Sodium 140 mmol/L (135-145); eGFR > 60.00
[2025-01-09] MEDS: DELTASONE 7 MG PO (09:44)
[2025-01-09] MEDS: LIDOCAINE 4% PATCH 1 PATCH TOPICAL (09:45)
[2025-01-09] MEDS: TYLENOL 1000 MG PO ×3 (09:46→22:32)
[2025-01-09] MEDS: SENOKOT PO ×2 (09:48→19:53)
[2025-01-09] MEDS: REFRESH EYE DROPS (PF) 1 DROPS BOTH EYES ×2 (09:49→19:53)
[2025-01-09] MEDS: ELIQUIS 5 MG PO ×2 (09:49→19:53)
[2025-01-09] MEDS: NON-FORMULARY ITEM 1 DROP OPHTH ×2 (09:51→19:54)
[2025-01-09] MEDS: NON-FORMULARY ITEM 1 DROP BOTH EYES ×2 (09:51→19:54)
[2025-01-09] MEDS: PRAVACHOL 40 MG PO (09:52)
--- NOTE | 2025-01-09 13:10 | CON.CAR ---
Addendum entered and electronically signed by Avila King MD 01/09/25 15:35:
I saw and evaluated the patient, and I provided the substantive portion of the medical decision making.
I reviewed and agree with the note by KB and it accurately reflects our care.
I personally performed the medical decision making of the this encounter and my assessment and plan is below:
84-year-old female with paroxysmal atrial fibrillation on Eliquis who presents with back pain found to have compression fracture. Cardiology is consulted for atrial fibrillation with RVR. On admission, she was in sinus rhythm and was not on
telemetry. This morning she was noted to have elevated heart rates and ECG showed A-fib with RVR. Since then, telemetry shows atrial fibrillation with heart rates in the 110s�120s. Patient is asymptomatic from a cardiovascular standpoint. She
does endorse ongoing back pain.
Physical exam: Irregular rate and rhythm, no murmurs, clear lungs, no lower extremity edema
TTE 01/09/2025: LVEF 55%, normal RV, severe biatrial enlargement, moderate MR, mild/mod TR, PASP 44 mmHg
Paroxysmal atrial fibrillation: Increase metoprolol to 150 mg daily and trend heart rates. Continue apixaban 5 mg twice daily for AC.
Original Note:
Consultation
Consultation Request
Date/Time Consultation Requested: 01/09/25 1240
Date/Time Consultation Performed: 01/09/25 1310
Requesting Provider: Dr. Barba
Performing Provider: Maura QUILES for Dr. King
Reason for Consultation: AFIB with RVR
Medical History
-
Chief Complaint: hip pain
History of Present Illness:
84 y/o female with history of AFIB on Eliquis (likely PAF), PMR on steroids, hypertension, and dyslipidemia who is here for evaluation of 2 weeks of pain in right lower back/upper buttox region and difficulty ambulating. This happened after heavy
pulling. She is seen to have mild superior endplate compression deformity of L2. She treated with pain management and PT. We are consulted due to AFIB with RVR. In ER on 01/06/25, she was in SR. Then she wasn't on monitor for several days. This AM,
she is seen to have AFIB with RVR on EKG and telemetry. She is asymptomatic. Of note, she did not receive metoprolol dose yesterday by [facility]. Her rental representative is Dr. Kellogg from [facility] in [place], [place]. She has not been there in
over a year as she has just followed with her PCP instead.
Past Medical History
Past Medical History: Arrhythmias, HTN, Hypercholesterolemia and Other (PMR)
Social History
Tobacco: Non-Smoker
Alcohol: None
Living: Alone
Family History
Family History: Other (mom had afib)
Allergies / Home Medications
Allergy/AdvReac Type Severity Reaction Status Date / Time
No Known Allergies Allergy Verified 01/05/25 15:51
�Medication �Instructions �Recorded �Confirmed �Type
Lumigan 1 drp ophthalmic (eye) HS Eye 01/05/25 01/05/25 History
Condition
Annamarie's Opcon 1 drp ophthalmic (eye) BID Eye 01/05/25 01/05/25 History
Condition
Refresh 1 drp ophthalmic (eye) BID Eye 01/05/25 01/05/25 History
Condition
apixaban 5 mg tablet (Eliquis) 5 mg PO DAILY Blood Clot 01/05/25 01/05/25 History
Prevention/Tx
dorzolamide-timolol 1 drp ophthalmic (eye) BID Eye 01/05/25 01/05/25 History
Condition
losartan 100 mg tablet 100 mg PO DAILY Blood Pressure 01/05/25 01/05/25 History
metoprolol succinate 100 mg 100 mg PO DAILY Blood Pressure 01/05/25 01/05/25 History
tablet,extended release 24 hr
pravastatin 40 mg tablet 40 mg PO DAILY High Cholesterol 01/05/25 01/05/25 History
prednisone 7 mg PO DAILY INFLAMMATION 01/05/25 01/05/25 History
Review of Systems
-
History Source: Patient
All other systems: Negative unless noted
Musculoskeletal: Other (pain right lower back/upper buttox)
Physical Exam
Vital Signs
Temp Pulse Resp BP Pulse Ox
98 F 90 16 130/89 100
01/09/25 11:00 01/09/25 11:00 01/09/25 11:00 01/09/25 11:00 01/09/25 11:00
Lab Results
01/06/25 06:55
01/09/25 08:32
Physical Exam
General: Well Developed, Well Nourished and No Apparent Distress
HEENT: Normocephalic and Anicteric
Respiratory: Clear and Non Labored Respirations
Cardiac: Irregular Rhythm
Musculoskeletal: No Edema
Skin: Warm and Dry
Neuro: AO x 3
Psych: Calm
Impression / Plan
-
Right low back pain:
-Pain control/PT
-imaging as noted
-management per primary
AFIB: seems to be paroxysmal (was in SR on arrival)
-continue Eliquis for OAC. Of note, she was only taking it once daily due to bruising. We reviewed the importance of taking it twice a day for stroke prevention. [id number] score 4 for age, female, hypertension.
-continue metoprolol- will increase dosing and monitor since rates elevated up to 120's
-of note, this is in setting of pain and missed dose metoprolol
-we reviewed that after d/c, she will need to resume follow-up with cardiology
-echo is ordered by primary team
Hypertension:
-stable
-monitor with medicine adjustment (off ARB, increasing BB)
Dyslipidemia:
-on statin
Data Reviewed
-
EKG: Tracing Personally Visualized and interpreted (AFIB with RVR )
Radiology: Report Reviewed by me (Lumber spine X ray: Age indeterminant mild superior endplate compression deformity of L2; this may be subacute in nature. Minimal superior endplate L5 diminished stature, which looks chronic. Facet arthrosis with
mild degenerative grade 1 spondylolisthesis of L5.)
Medical Tests (Nuc Med, Echo etc): Other (echo is ordered )
Labs: Labs Reviewed by me
[2025-01-09] MEDS: FLEXERIL 2.5 MG PO (14:16)
--- NOTE | 2025-01-09 15:24 | CM ---
Referral in care port.
Spoke with [facility] bed available tomorrow.
Spoke with patient constanza Kenyon both agreed with [facility] at [facility].
Remains Observation.
[facility]ed [facility] [phone] spoke with Janel jacobson provided Reference number [id number] Clinical Faxed to [phone].
Awaiting auth for [facility]
report [phone]
fax [phone]
PLAN To [facility] after auth obtained
[2025-01-09] MEDS: TOPROL XL 50 MG PO (17:52)
[2025-01-09] MEDS: NON-FORMULARY ITEM 1 UNIT BOTH EYES (19:56)
[2025-01-10 03:10] VITALS: BP 111/81
[2025-01-10 07:25] VITALS: BP 152/63
--- NOTE | 2025-01-10 07:34 | W.PN.HOSP.TC ---
Addendum entered and electronically signed by Vikram Rocha MD 01/11/25 09:07:
Paroxysmal Afib per cards
Addendum entered and electronically signed by Lucy Barba DO, Resident 01/10/25 17:18:
Addendum: Patient has Paroxysmal Atrial Fibrillation, as her heart rate was documented as regular in her H&P.
Per X-ray of L Spine: Diffuse osseous demineralization. Patient has multifactorial compression fracture of L2 secondary to osteoporosis and mechanical injury
Addendum entered and electronically signed by Vikram Rocha MD 01/10/25 17:05:
I saw and evaluated the patient. I reviewed the resident�s note and agree with findings and plan as documented in the resident�s note.
Patient was feeling stable no more pain
No shortness of breath or chest pain
Heart rate better
Cardiovascular sternal sinus 2 irregular but not tachycardic
Chest clear to auscultation no pedal edema metoprolol increased to 100 mg twice daily
Losartan stopped at discharge
Patient was made aware about this change continue Eliquis
Continue outpatient dose of steroids
More than 30 minutes spent in discharge including
Final examination of the patient
Summarizing hospital stay
Instructions for continuing care to all relevant caregivers
Preparation of discharge records, prescriptions, and referral forms
Discharge to rehab
Original Note:
Today's Communication/Plan
-
Discharge planning
Assessment / Plan
Assessment / Plan
Assessment:
This is an 84 y/o female with right-sided back/buttock pain that began in late December after pulling a heavy object across the floor who presented to the ED on 01/05/2025 with ambulatory dysfuntion seccdonary to pain and was found to have an
age-indeterminant mild superior endplate compression fracture of L2 and chronic minimal superior endplate L5 diminished stature.
Plan:
Ambulatory dysfunction due to right low back pain:
-Secondary to mechanical injury (started 12/24 after pulling heavy object across the floor)
-X-ray with possible subacute L2 compression deformity-possibly secondary to osteopenia
-S/p 6mg IV Decadron x2
-Continue pain control. Patient did not find significant benefit from Flexeril yesterday, will not continue
-Continue PT/OT
-Plan for SNF upon discharge
Chronic Atrial Fibrillation
-Patient with new episodes of Afib with RVR starting earlier this AM and persistent tachycardia since then. Currently asymptomatic
-Has not seen apparel fashion designer in some time
-Cardiology has been consulted, has increased her metoprolol to 100mg BID.
-Echo showed Normal biventricular size and systolic function without regional wall motion abnormality. LVEF 55%. Severe biatrial enlargement. Moderate mitral regurgitation. Mild to moderate tricuspid regurgitation with mildly elevated pulmonary
artery systolic pressure (44 mmHg).
-Continue Eliquis
-Continue Beta Kole at increased dose
-Will monitor
Elevated creatinine with unknown baseline
-Stable
#Polymyalgia Rheumatica
-Continue Prednisone
#Essential HTN
-Continue Beta Kole
-ARB currently on hold, BP has remained stable without it
#Hyperlipidemia
-Continue statin
#DVT Prophylaxis- Eliquis
#DNR
D/W Case management re SNF-Earliest D/c would be tomorrow
Anticipated Discharge: Today
Subjective/Interval History
-
Date of Service: January 10, 2025
Patient was resting comfortably in her chair when I arrived. She states yesterday after she was given Flexeril she was immediately taken down for the Echo, so she isn't sure if it improved her pain. That being said, her stiffness/pain is slightly
improved overall today compared to yesterday.
Objective Data
-
Labs:
Laboratory Results
01/10/25
07:31
WBC Pending
Hgb Pending
Hct Pending
Plt Count Pending
Sodium Pending
Potassium Pending
Chloride Pending
Carbon Dioxide Pending
BUN Pending
Creatinine Pending
Glucose Pending
Calcium Pending
Vital Signs:
Vital Signs
Temp Pulse Resp BP Pulse Ox
97.7 F 93 16 111/81 100
01/10/25 03:10 01/10/25 03:10 01/10/25 03:10 01/10/25 03:10 01/10/25 03:10
I&O
01/09/25 01/10/25 01/11/25
06:59 06:59 06:59
Intake Total 660 / 660 200 / 200
Output Total 650 / 650 0 / 0
Balance 200 / 200
Review of Systems
-
History Source: Patient
Constitutional: Denies Fever or Chills
Respiratory: Denies Cough or Trouble Breathing
Cardiac: Denies Chest Pain or Palpitations
Abdomen/GI: Denies Abdominal Pain, Nausea, Vomiting, Diarrhea or Constipated
Musculoskeletal: Reports Joint Pain, Muscle Pain and Muscle Stiffness
Neuro: Denies Dizzy, Headache or Weakness
Physical Exam
-
General: Well Developed, Well Nourished, No Apparent Distress and Comfortable
HEENT: Normocephalic and Atraumatic
Respiratory: Clear to Auscultation
Cardiac: S1/S2 and Irregular Rhythm
GI: Soft and Nontender
Skin: Warm and Dry
Neuro: Awake, Alert and Oriented
Psych: Calm
[2025-01-10] MEDS: DELTASONE 7 MG PO (07:57)
[2025-01-10] MEDS: TOPROL XL 100 MG PO (07:58)
[2025-01-10] MEDS: REFRESH EYE DROPS (PF) 1 DROPS BOTH EYES (07:58)
[2025-01-10] MEDS: ELIQUIS 5 MG PO (07:59)
[2025-01-10] MEDS: TOPROL XL 50 MG PO ×2 (07:59→09:27)
[2025-01-10] MEDS: TYLENOL 1000 MG PO ×2 (07:59→15:02)
[2025-01-10] MEDS: PRAVACHOL 40 MG PO (07:59)
[2025-01-10] MEDS: SENOKOT PO (07:59)
[2025-01-10] MEDS: NON-FORMULARY ITEM 1 DROP BOTH EYES (08:00)
[2025-01-10] MEDS: LIDOCAINE 4% PATCH 1 PATCH TOPICAL (08:00)
[2025-01-10] MEDS: NON-FORMULARY ITEM 1 DROP OPHTH (08:00)
[2025-01-10 08:08] LABS: Hematocrit 37.8 % (37.0-47.0); Hemoglobin 12.2 g/dL (12.0-16.0); Mean Corp Hgb Conc. 32.3 g/dL (33.0-37.0); Mean Corpuscular Volume 93.6 fL (81.0-99.0); Platelet Count 171 10^3/uL (130-400); Red Cell Dist. Width 13.5 % (11.5-14.5)
[2025-01-10 08:27] LABS: Blood Urea Nitrogen 34 mg/dl (7-17); Calcium 9.3 mg/dl (8.4-10.2); Carbon Dioxide 27 mmol/L (22-30); Chloride 107 mmol/L (98-107); Estimated Creatinine Clearance 49 ml/min; Glucose 88 mg/dl (70-99); Potassium 4.2 mmol/L (3.5-5.1); Sodium 138 mmol/L (135-145); eGFR > 60.00
--- NOTE | 2025-01-10 09:00 | W.PN.CD ---
Today's Communication / Plan
-
Increase Metoprolol to 100mg BID
If HRs look ok this afternoon (<110 bpm), she is safe for discharge from a CV standpoint
Impression / Plan
-
Right low back pain:
-Pain control/PT
-imaging as noted
-management per primary
AFIB: seems to be paroxysmal (was in SR on arrival)
-continue Eliquis for OAC. Of note, she was only taking it once daily due to bruising. We reviewed the importance of taking it twice a day for stroke prevention. [id number] score 4 for age, female, hypertension.
-increase metoprolol to 100mg BID
-we reviewed that after d/c, she will need to resume follow-up with cardiology
-echo this admission with LVEF 55%
Hypertension:
-stable
-monitor with medicine adjustment (off ARB, increasing BB)
Dyslipidemia:
-on statin
Subjective: Still has back pain. No CV symptoms.
Telemetry: Afib, HR 100-110s
Physical Exam
Vital Signs/Labs
Vital Signs
Temp Pulse Resp BP Pulse Ox
97.6 F 83 16 152/93 95
01/10/25 07:25 01/10/25 07:58 01/10/25 07:25 01/10/25 07:58 01/10/25 07:25
01/10/25 07:31
01/10/25 07:31
Magnesium 2.0 mg/dl (1.6-2.3) 01/09/25 08:32
Physical Exam
Constitutional: No acute distress and Comfortable
Cardiovascular: Pedal edema is absent, Rhythm/rate is irregular, S1S2 is normal and Murmur/rub/gallop absent
Respiratory: Respiratory effort normal and Lungs clear to auscul.
Neuro/Psych: AO x 3
Data Reviewed
-
Date of Service: January 10, 2025
Medical Decision Making: Reviewed Test Results, Test Interpretation and Review of Case with other Provider
EKG: Tracing Personally Visualized and interpreted
Echo: Report Reviewed by me
Labs: Labs Reviewed by me
[2025-01-10 11:18] VITALS: BP 125/84
[2025-01-10 11:33] VITALS: BP 117/80; BP 135/88; PULSE 77; O2SAT 98
--- NOTE | 2025-01-10 12:40 | W.DCSUMMARY ---
Documented by User: Lucy Barba , Resident 01/10/25 17:12
Discharge Summary
Discharge Data
Date of Admission: 01/09/25
Date of Discharge: 01/10/25
-
Pending Results: No
Hospital Course
Discharging Physician : Dr. Rocha
Disposition : Good
Primary care physician : Dr. Aster Pineda
Principal Discharge diagnosis : Ambulatory Dysfunction secondary to Right Low Back Pain
Chronic Discharge diagnosis : Chronic Atrial Fibrillation, Acute kidney injury, Essential Hypertension, Hyperlipidemia
Hospital Course :
This is an 84 y/o female with pmhx of polymyalgia rheumatica, essential hypertension, permanent atrial fibrillation who presented to the emergency department on 01/05/2025 with pain in her right buttock that had began on 12/24 after moving a heavy
object across the floor. She has been unable to stand or ambulate due to pain, which persisted and ultimately prompted her visit to the Ed
In the ED, X-ray of her L-Spine showed age indeterminant mild superior endplate compression deformity of L2; this may be subacute in nature. Minimal superior endplate L5 diminished stature, which looks chronic. Facet arthritis with mild degenerative
grade 1 spondylolisthesis of L5. X-ray of the right hip showed no radiographically demonstrable fracture.
She was started on scheduled Tylenol 1000mg TID, lidoderm patch. She was also given 6mg IV Decadron x2. Her pain gradually improved over the weekend. On 01/09 she began to experience runs of afib with RVR, so cardiology was consulted. An echo was
performed which revealed findings as noted below. She was also given a one time dose of Flexeril 2.5mg with no significant improvement in her stiffness. Her metoprolol was increased to 100mg BID. On 01/10/2025 she was found to be medically stable and
was discharge to [facility]. She was instructed to follow up with her PCP in less than 1 week, and to establish care with a floral design teacher again. Her Valsartan was discontinued on discharge.
Important imaging findings :
X-ray Right Hip 01/05: No radiographically demonstrable fracture.
X-ray L Spine 01/05: Age indeterminant mild superior endplate compression deformity of L2; this may be subacute in nature. Minimal superior endplate L5 diminished stature, which looks chronic. Facet arthrosis with mild degenerative grade 1
spondylolisthesis of L5.
Echocardiogram 01/09: Normal biventricular size and systolic function without regional wall motion abnormality. LVEF 55%. Severe biatrial enlargement. Moderate mitral regurgitation. Mild to moderate tricuspid regurgitation with mildly elevated
pulmonary artery systolic pressure (44 mmHg). No prior study available for comparison.
Procedure findings : N/a
Discharge Plan
-
Patient Disposition: [facility]/SNF
Discharge Diagnosis/Procedures: Ambulatory Dysfunction secondary to Right Low Back Pain, Chronic Atrial Fibrillation, Acute kidney injury, Essential Hypertension, Hyperlipidemia
Condition: Good
Diet: No restrictions
Activity: No restrictions and As tolerated
Driving Restrictions: As prior to admission
Bathing Restrictions: None
Other Services: PT and OT
Referrals:
Aster Pineda MD [Family Provider] - in less than 1 week
Avila King MD [Active, Cardiology]
Additional Discharge Medication Instructions: Thank you for visiting [facility]. We recommend that you follow up with your primary care physician in less than 1 week, and contact your floral design teacher to be seen again within the next few weeks.
You may also choose to establish care with a new floral design teacher, but we recommend being seen by them soon.
Your prescriptions have been adjusted as follows:
Your the frequency that you should take Metoprolol has increased. Please take 100mg TWICE a day.
Please STOP taking Losartan.
Prescriptions:
New
metoprolol succinate 100 mg Tablet Extended Release 24 Hr
100 mg PO BID Qty: 60 0RF
Continued
pravastatin 40 mg tablet
40 mg PO DAILY
Eliquis 5 mg tablet
5 mg PO DAILY
Rx Instructions:
Patient reports has been taking daily because she does not like bruising
Lumigan
1 drp ophthalmic (eye) HS
Rx Instructions:
Both eyes
Annamarie's Opcon
1 drp ophthalmic (eye) BID
Rx Instructions:
Left eye
Refresh
1 drp ophthalmic (eye) BID
dorzolamide-timolol
1 drp ophthalmic (eye) BID
prednisone
7 mg PO DAILY
Discontinued
metoprolol succinate 100 mg tablet extended release 24 hr
100 mg PO DAILY
losartan 100 mg tablet
100 mg PO DAILY
Discharge Orders:
Discharge Patient (As Directed); Ordered 01/10/25
Ordered By: Vikram Rocha
Discharge Date and Time
Discharge Date/Time: 01/10/25 16:25
Print Language: OCCITAN

Documented by User: Vikram Rocha MD 01/10/25 16:47
Discharge Summary
Discharge Data
Date of Admission: 01/09/25
Date of Discharge: 01/10/25
Discharge Plan
-
Patient Disposition: [facility]/SNF
Discharge Diagnosis/Procedures: Ambulatory Dysfunction secondary to Right Low Back Pain, Chronic Atrial Fibrillation, Acute kidney injury, Essential Hypertension, Hyperlipidemia
Condition: Good
Diet: No restrictions
Activity: No restrictions and As tolerated
Driving Restrictions: As prior to admission
Bathing Restrictions: None
Other Services: PT and OT
Referrals:
Aster Pineda MD [Family Provider] - in less than 1 week
Avila King MD [Active, Cardiology]
Additional Discharge Medication Instructions: Thank you for visiting [facility]. We recommend that you follow up with your primary care physician in less than 1 week, and contact your floral design teacher to be seen again within the next few weeks.
You may also choose to establish care with a new floral design teacher, but we recommend being seen by them soon.
Your prescriptions have been adjusted as follows:
Your the frequency that you should take Metoprolol has increased. Please take 100mg TWICE a day.
Please STOP taking Losartan.
Prescriptions:
New
metoprolol succinate 100 mg Tablet Extended Release 24 Hr
100 mg PO BID Qty: 60 0RF
Continued
pravastatin 40 mg tablet
40 mg PO DAILY
Eliquis 5 mg tablet
5 mg PO DAILY
Rx Instructions:
Patient reports has been taking daily because she does not like bruising
Lumigan
1 drp ophthalmic (eye) HS
Rx Instructions:
Both eyes
Annamarie's Opcon
1 drp ophthalmic (eye) BID
Rx Instructions:
Left eye
Refresh
1 drp ophthalmic (eye) BID
dorzolamide-timolol
1 drp ophthalmic (eye) BID
prednisone
7 mg PO DAILY
Discontinued
metoprolol succinate 100 mg tablet extended release 24 hr
100 mg PO DAILY
losartan 100 mg tablet
100 mg PO DAILY
Discharge Orders:
Discharge Patient (As Directed); Ordered 01/10/25
Ordered By: Vikram Rocha
Discharge Date and Time
Discharge Date/Time: 01/10/25 16:25
Print Language: OCCITAN
--- NOTE | 2025-01-10 13:22 | CM ---
entered order for discharge.
Received call from [facility] approved skilled days from 01/10/25 to 01/12/25 Auth # [id number] Reference number [id number] NRD contact Madison G fax [phone].[facility] aware and accepted patient.
Pt changed to Inpatient IMM reviewed with charisse Kenyon .
Chantale martet notified that patient is dc to [facility] . She requested [facility] Acute care number [phone] given to dgt for payment.
[facility]
report [phone]
fax [phone]
PLAN To [facility] via [employer]
[2025-01-10] MEDS: FLUZONE HIGH-DOSE 2025-26 0.5 ML IM (15:01)
[2025-01-10 15:31] VITALS: BP 132/84
--- NOTE | 2025-01-10 16:43 | PN.CDI ---
CDI
- -
CDI:
Physician Documentation Request
Admit Date: 01/09/25 17:05
Dear Doctor Freda and Dr. Rocha,
Please review the following and provide your response in the progress notes.
Clinical Indicators:
Cardiology PN, 01/10
#AFIB: seems to be paroxysmal (was in SR on arrival)
PN, 01/10
#Chronic Atrial Fibrillation
#...-Patient with new episodes of Afib with RVR starting earlier this AM
#...and persistent tachycardia since then.
#...Currently asymptomatic
Based on the above and your clinical assessment, please clarify specificity regarding atrial fibrillation, such as:
Paroxysmal atrial fibrillation - terminates spontaneously or with intervention within 7 days of onset
Persistent atrial fibrillation - episodes of continuous AF that last more than 7 days and do not self-terminate
Permanent atrial fibrillation - when a decision has been made to accept the presence of AF and there is no further attempt to restore or maintain sinus rhythm
Chronic atrial fibrillation
Other - please specify
Use of terms such as suspected, likely, concern for, or probable (associated with a specific diagnosis that is being evaluated, monitored, or treated as if it exists) are acceptable and can be coded in the inpatient setting, when documented at the
time of discharge.
Thank you,
Chrissy Hatfield RN BSN CCDS
CDI Specialist
Please contact via tiger text
Please use your independent medical judgment in providing your response.
--- NOTE | 2025-01-10 16:48 | PN.CDI ---
CDI
- -
CDI:
Physician Documentation Request
Admit Date: 01/09/25 17:05
Dear Doctor Freda and Dr. Rocha,
Please review the following and provide your response in the progress notes.
Clinical Indicators:
01/05 CR Lumbar Spine Comp Min 4 Vw*
#FINDINGS:
#...Diffuse osseous demineralization.
#...Mild superior plate compression deformity of L2, age indeterminate.
#...This could be subacute.
#IMPRESSION:
#...Age indeterminant mild superior endplate compression deformity of L2;
#...this may be subacute in nature.
H+P, 01/05
#History osteoporosis
PN, 01/10
#Ambulatory dysfunction due to right low back pain:
#-Secondary to mechanical injury (started 12/24 after pulling heavy object across the floor)
#-X-ray with possible subacute L2 compression deformity-possibly secondary to osteopenia
Based on the above and your clinical assessment, please clarify the following regarding the diagnosis of osteoporosis L2 compression fracture:
Multifactorial lumbar(L2) compression fracture due to low level trauma and age related osteoporosis
L2 compression fracture due to osteopenia
Traumatic fracture only
Other (please clarify)
Type Fracture
Age-related With current pathological fx
Drug induced (specify drug) without current pathological fx
Idiopathic
Osteoporosis of disuse
Post traumatic
Use of terms such as suspected, likely, concern for, or probable (associated with a specific diagnosis that is being evaluated, monitored, or treated as if it exists) are acceptable and can be coded in the inpatient setting, when documented at the
time of discharge.
Thank you,
Chrissy Hatfield RN BSN CCDS
CDI Specialist
Please contact via tiger text
Please use your independent medical judgment in providing your response.
== END 2025-01-10 16:25 | DRG 543 ==
LOC: 4 EAST ACU 17:05
PROVIDERS: Clinical Nurse Specialist Family Health; Physician Assistant; ADMITTING PHYSICIAN Hospitalist; ATTENDING PHYSICIAN Hospitalist; CONSULT PHYSICIAN Student in an Organized Health Care Education/Training Program; EMERGENCY PHYSICIAN Emergency Medicine; FAMILY PHYSICIAN Family Medicine
PROC: 3E02340 Introduction of Influenza Vaccine into Muscle, Percutaneous Approach (ICD-10-PCS; 2025-01-10)
DX: M80.08XA Age-related osteoporosis with current pathological fracture, vertebra(e), initial encounter for fracture (principal); N17.9 Acute kidney failure, unspecified; M47.819 Spondylosis without myelopathy or radiculopathy, site unspecified; I08.1 Rheumatic disorders of both mitral and tricuspid valves; I10 Essential (primary) hypertension; E78.00 Pure hypercholesterolemia, unspecified; M35.3 Polymyalgia rheumatica; Z66 Do not resuscitate; G89.29 Other chronic pain; Z79.01 Long term (current) use of anticoagulants; Z79.52 Long term (current) use of systemic steroids; Z79.899 Other long term (current) drug therapy; Z23 Encounter for immunization; I48.0 Paroxysmal atrial fibrillation
CPT/HCPCS: 72110; 73502; 80048; 80053; 83735; 85025; 85027; 93005; 93306; 96361; 96374; 96375; 96376; 97116; 97162; 97166; 97530; 97535; 99284

== ENCOUNTER → 2025-01-13 11:24 | Outpatient (REF) | payer MEDICARE, SELFPAY ==
[2025-01-13 12:13] LABS: Hematocrit 38.6 % (37.0-47.0); Hemoglobin 12.8 g/dL (12.0-16.0); Mean Corp Hgb Conc. 33.2 g/dL (33.0-37.0); Mean Corpuscular Volume 95.5 fL (81.0-99.0); Nucleated Red Blood Cells % 0 %; Platelet Count 226 10^3/uL (130-400); Red Cell Dist. Width 13.7 % (11.5-14.5)
[2025-01-13 12:32] LABS: Blood Urea Nitrogen 33 mg/dl (7-17); Calcium 9.1 mg/dl (8.4-10.2); Carbon Dioxide 27 mmol/L (22-30); Chloride 105 mmol/L (98-107); Glucose 99 mg/dl (70-99); Potassium 4.2 mmol/L (3.5-5.1); Sodium 139 mmol/L (135-145); eGFR > 60.00
== END ==
LOC: OLABP 11:24
PROVIDERS: ATTENDING PHYSICIAN Family Medicine
DX: M35.3 Polymyalgia rheumatica (principal); R26.2 Difficulty in walking, not elsewhere classified; E78.5 Hyperlipidemia, unspecified; I10 Essential (primary) hypertension; I48.0 Paroxysmal atrial fibrillation; S32.000D Wedge compression fracture of unspecified lumbar vertebra, subsequent encounter for fracture with routine healing
CPT/HCPCS: 36415; 80048; 85025